=== PATIENT | female | born 1950 | race Caucasian/White ===

== ENCOUNTER 2023-11-02 09:03 | Emergency (ER) | payer MEDICARE, OTHER, SELFPAY ==
--- NOTE | ~2023-11-02 | CT_ITS ---
EXAMINATION: CT cervical spine wo con DATE: 11/02/2023 09:21 INDICATION: Neck pain after fall TECHNIQUE: Computed tomography (CT) of the cervical spine was performed without intravenous contrast. The dose-length product was 358 mGy-cm. Automated exposure control and iterative reconstruction tech [employer] were employed. COMPARISON: None FINDINGS: There is straightening of cervical lordosis which may be due to positioning or patient musc le spasm. There is advanced degenerative disc disease and spondylosis at C4-5 and C5-6 with prominent dorsal osteophytes at C5-6. Craniovertebral junction is normal. Odontoid process is normal. No evide nce for perched facet. There is moderate multilevel uncinate hypertrophy, most advanced at C4-5 and C 5-6. Lung apices are unremarkable. There is carotid atherosclerosis. There is right neural foraminal narrowing at C4-5 and bilaterally at C5-6. IMPRESSION: 1. No acute abnormality of the cervical spine. Reviewed, dictated and finalized at location A. ER MACHINE OPERATOR
--- NOTE | ~2023-11-02 | CT_ITS ---
EXAMINATION: CT BRAIN W/O DATE: 11/02/2023 09:20 INDICATION: Status post fall. TECHNIQUE: Computed tomography (CT) of the head was performed without intravenous contrast. The dose- length product was 681.00 mGy-cm. Automated exposure control and iterative reconstruction technique w ere employed. COMPARISON: No prior studies for comparison. FINDINGS: Normal brain parenchymal volume for age. Normal moody-white differentiation. No acute intrac ranial hemorrhage, infarction, mass or mass effect. There is right frontal scalp hematoma. No ventriculomegaly or midline shift. Midline sagittal images demonstrate a normal corpus callosum, c raniovertebral junction and sella turcica. Basilar cisterns are patent. Paranasal sinuses and mastoids are pneumatized. No depressed skull fractures. IMPRESSION: 1. No acute intracranial abnormality. Reviewed, dictated and finalized at location A. ERING MACHINE OPERATOR
[2023-11-02 09:09] VITALS: BP 139/85; PULSE 82; RESP 16; TEMP 36.3; O2SAT 97
--- NOTE | 2023-11-02 09:16 | PC.NURSE ---
Pt to CT via stretcher
[2023-11-02 09:31] VITALS: BP 163/69; PULSE 85; RESP 14; O2SAT 98
--- NOTE | 2023-11-02 10:32 | ED.FALL ---
HPI - Fall General Chief Complaint: Fall Stated Complaint: Fall Time Seen by Provider: 11/02/23 09:08 History of Present Illness HPI Narrative: 73-year-old female presenting to the emergency department for evaluation after having a ground level fall. Patient reports this morning she was carrying things in her home when her foot got caught on an object causing her to fall forward. Patient did strike her head the wall. Patient denies any loss of consciousness. Patient denies any other pain or injury. Patient does have a hematoma to her right forehead and patient is currently on blood thinners. Patient was able to present to the emergency department private transport. At time of examination patient is alert oriented and appears to be in no distress. Related Data Allergies Allergy/AdvReac Type Severity Reaction Status Date / Time prednisone AdvReac Vomiting Verified 11/02/23 09:26 Review of Systems Review of Systems: All systems reviewed & are unremarkable except as noted in HPI and below Exam Narrative: APPEARANCE: Well appearing, no pain, no distress, well-nourished. HEAD: normocephalic, hematoma to right forehead. EYES: PERRLA/EOMI, conjunctivae clear. NOSE: Normal no drainage NECK: Supple. No adenopathy, no masses. RESPIRATORY: Airway patent, respirations nonlabored. Clear to auscultation bilaterally, no rales, rhonchi, wheezing. CARDIOVASCULAR: Regular rate and rhythm without murmurs rubs or gallops. ABDOMINAL: Soft, nontender, nondistended, normal bowel sounds MUSCULOSKELETAL: Moves all extremities. Strength/ROM intact, No edema, No calf tenderness. NEURO: Alert. Cranial nerves II through XII intact. Grossly intact SKIN: Warm, dry. Normal Color Course Course Emergency Course: Patient was alert and oriented, able to ambulate and patient was discharged to home after negative imaging. Vital Signs Vital signs: Vital Signs Temperature 97.4 F L 11/02/23 09:09 Pulse Rate 82 11/02/23 09:09 Respiratory Rate 16 11/02/23 09:09 Blood Pressure 139/85 11/02/23 09:09 Pulse Oximetry 97 11/02/23 09:09 Temperature 98.5 F 11/02/23 10:50 Pulse Rate 74 11/02/23 10:50 Respiratory Rate 14 11/02/23 10:50 Blood Pressure 159/74 H 11/02/23 10:50 Pulse Oximetry 98 02/25/24 10:50 MDM - Fall MDM Narrative Medical decision making narrative: 73-year-old female present to the emergency department for evaluation of a head injury. Patient is on blood thinners. Brain and cervical spine CT were negative for acute injury. Patient denies any other pain or injury. Low concern for intracranial injury and low concern for fracture. Patient was educated on reasons to return to the emergency department. All questions concerns were addressed. Differential Diagnosis Differential diagnosis: Likely other (Subarachnoid hemorrhage, subdural hematoma, skull fracture, cervical spine fracture) Imaging Data Radiologist's impression: Impressions Head CT 11/02/23 09:26 IMPRESSION: 1. No acute intracranial abnormality. Cervical Spine CT 11/02/23 09:28 IMPRESSION: 1. No acute abnormality of the cervical spine. Discharge Plan Discharge Clinical Impression: Hematoma Patient Disposition: Home, Self-Care Condition: Stable Instructions: Antibiotic Form, Head Injury (ED) Additional Instructions: Have close follow-up with your primary care physician. If you have any worsening symptoms then please call or return to the emergency department. Follow-up/Referrals: NON-NURSING STAFF,ADMISSIONS [Primary Care Provider] -
[2023-11-02 10:50] VITALS: BP 159/74; PULSE 74; RESP 14; TEMP 36.9; O2SAT 98
== END 2023-11-02 10:52 | disposition home or self-care (01) ==
PROVIDERS: Emergency Provider Emergency Medicine
DX: S00.93XA Contusion of unspecified part of head, initial encounter (principal); Z79.01 Long term (current) use of anticoagulants; W18.00XA Striking against unspecified object with subsequent fall, initial encounter; Y92.009 Unspecified place in unspecified non-institutional (private) residence as the place of occurrence of the external cause
CPT/HCPCS: 70450; 72125; 99284